=== PATIENT | male | born 1995 | race Caucasian/White ===

== ENCOUNTER 2016-09-25 07:52 | Emergency (ER) | payer BC ==
[~2016-09-25] VITALS: Ht 182.9 cm; Wt 66.6 kg
[~2016-09-25 07:52] MED LIST: CHLO100T8 PO; CLON0.5T3 PO; HYDR-5688 PO; PROP1TAB PO; VENL150T33 PO
[2016-09-25 07:56] VITALS: TEMP 37.1; Ht 182.9 cm; Wt 66.6 kg
[2016-09-25] MEDS ORDERED: MoRPHine SULFATE 4 MG/ML 1 ML CARP\\VIAL IV STA (08:15)
[2016-09-25] MEDS ORDERED: SODIUM CHLORIDE 0.9% 1000ML 1,000 ML IV STA (08:15)
[2016-09-25] MEDS ORDERED: ONDANSETRON INJ 2 MG/ML 2 ML VIAL IV STA (08:15)
[2016-09-25] MEDS ORDERED: KETOROLAC TROMETHAMINE 30 MG/ML VIAL IV STA (08:15)
[2016-09-25 08:46] LABS: BASO % 0.2 %; BASO ABS # 0.02 K/uL (0-0.2); COMPLETE YES; EOS % 2.4 %; HEMATOCRIT 43.6 % (42-52); IG% 0.2 %; LYMPH % 24.1 %; LYMPH ABS # 2.34 K/uL (1.2-3.4); MEAN CELL VOLUME 90.3 fL (80-100); MEAN CORPUSCULAR HEMOGLOBIN 32.9 pg (25-34); MEAN CORPUSCULAR HGB CONC 36.5 g/dl (32-36); MEAN PLATELET VOLUME 9.3 fL (7.4-10.4); MONO % 9.7 %; NEUT % 63.4 %; PLATELET COUNT 262 K/uL (130-400); RED BLOOD COUNT 4.83 M/uL (4.7-6.1)
[2016-09-25 08:55] LABS: URINE APPEARANCE CLEAR (CLEAR); URINE BILIRUBIN NEG (NEG); URINE COLOR YELLOW; URINE NITRITE NEG (NEG); URINE SPECIFIC GRAVITY 1.017 (1.000-1.030); UROBILINOGEN NEG (NEG)
[2016-09-25 09:12] LABS: BUN/CREATININE RATIO 15.7 (10-20); CALCIUM 8.8 mg/dl (8.5-10.1); CREATININE 0.9 mg/dl (0.60-1.40); POTASSIUM 3.5 mmol/L (3.5-5.1)
[2016-09-25 09:12] LABS: MANUAL MICROSCOPIC REQUIRED? NO; REVIEW REQ? NO
[2016-09-25 09:15] LABS: ALB/GLOB RATIO 1.2 (0.9-2)
--- NOTE | 2016-09-25 09:32 | DIAGNOSTIC IMAGING REPORT ---
TESTICULAR ULTRASOUND HISTORY: Right testicular/RLQ/flank pain COMPARISON: None. FINDINGS: Right testis: 5.9 x 3.2 x 2.1 cm. There are no intratesticular masses. Normal color flow. No hydrocele. The epididymis is unremarkable. Left testis: 5.5 x 2.3 x 3.2 cm. There are no intratesticular masses. Normal color flow. No hydrocele. A single punctate microlith. 2 mm cyst within the epididymal head. IMPRESSION: Normal bilateral testes. A 2 mm left epididymal head cyst. Electronically signed by: Deshawn Cyr M.D. 09/25/2016 9:30 AM Dictated Date/Time: 09/25/2016 9:29 AM
--- NOTE | 2016-09-25 09:33 | DIAGNOSTIC IMAGING REPORT ---
ULTRASOUND KIDNEYS AND BLADDER CLINICAL HISTORY: Right flank pain. COMPARISON STUDY: Abdominal CT dated 01/31/2016. TECHNIQUE: Real-time, grayscale, and color flow sonography of the kidneys and bladder is performed. Images are reviewed in the transverse and longitudinal planes. FINDINGS: Kidneys: The kidneys are normal in size and echotexture. The right kidney measures 11.3 x 3.6 x 4.7 cm and the left kidney measures 10.6 x 4.4 x 5.0 cm. There is no hydronephrosis. There is a 3 mm nonobstructing right renal calculus. No shadowing calculi are identified in the left kidney. There is no sonographic evidence of contour deforming renal mass lesion. No perinephric fluid is identified. Bladder: The partially decompressed bladder is normal as visualized. Ureteral jets were not seen. IMPRESSION: 1. The kidneys are normal in size and without hydronephrosis. 2. A nonobstructing right renal calculus is identified. This was also seen by CT on 01/31/2016. 3. The bladder is partially decompressed and grossly unremarkable. Electronically signed by: Terry Neff M.D. 09/25/2016 9:32 AM Dictated Date/Time: 09/25/2016 9:30 AM
[2016-09-25] MEDS ORDERED: VORT1TAB (09:34)
[2016-09-25] MEDS ORDERED: ACET-749 PO (09:56)
[2016-09-25 10:06] VITALS: BP 127/78; PULSE 93; O2SAT 97
--- NOTE | 2016-09-25 16:26 | EMERGENCY ROOM VISIT NOTE ---
History First contact with patient: 08:01 Chief Complaint: GROIN PAIN Stated Complaint: RIGHT GROIN PAIN History of Present Illness The patient is a 21 year old male who presents to the Emergency Room with complaints of right groin and testicular pain. The patient reports that his pain started approximately 2 hours ago. He reports that the pain is intermittent. He has not had any urination since this morning. He does report a prior history of kidney stones, and reports that it feels the same. He has not noticed any blood in his urine. He denies any nausea, vomiting, back pain, flank pain or generalized abdominal pain. The patient reports that the pain is worsened with contact with the right testicle. He has not noticed any testicular swelling or scrotal swelling/redness. The patient essentially active with condoms. He denies any urethral drainage or rectal pain. He rates his discomfort an 8 out of 10. Review of Systems 10 system review was performed and was negative except for pertinent positives and negatives as indicated in history of present illness Past Medical/Surgical History Medical Problems: (1) Anxiety (2) CANNABIS DEPEND-UNSPEC (3) Depressed (4) Kidney stone (5) Urinary problem Surgical Problems: (1) [place] teeth extracted Family History FH: kidney disease FHx: hypertension Heart disease Social History Smoking Status: Current Every Day Smoker Alcohol Use: none Drug Use: marijuana Marital Status: single Housing Status: lives with family Occupation Status: employed Current/Historical Medications Scheduled Clonazepam (Klonopin), 0.5 MG PO TID Scheduled PRN Acetaminophen/Codeine (Tylenol W/Codeine #3), 1-2 TABS PO q4-6h PRN for Pain Miscellaneous Medications Vortioxetine HBr (Trintellix) Allergies Coded Allergies: Trazodone (Verified Allergy, Unknown, RASH, SENSATION OF INCREASED BODY TEMPERATURE,DIAPHORESIS, 09/25/16) Physical Exam Vital Signs Date Time Temp Pulse Resp B/P Pulse Ox O2 Delivery O2 Flow Rate FiO2 09/25/16 10:06 93 18 127/78 97 Room Air 09/25/16 07:56 37.1 113 19 95 Room Air Physical Exam CONSTITUTIONAL: Healthy and well nourished. Alert and oriented X 3 with positive affect. Patient appears in mild discomfort. HEENT: Normocephalic, atraumatic. Pupils equal, round and reactive. NECK: Full active range of motion without discomfort. RESPIRATORY: Clear to auscultation bilaterally with no wheezing, crackles, rhonchi or stridor. CARDIOVASCULAR: Regular rate and rhythm with no murmurs, rubs or gallops. GASTROINTESTINAL: Bowel sounds present in all quadrants. Examination shows no abdominal tenderness to palpation. Negative McBurney's point tenderness. Negative CVA tenderness. No suprapubic tenderness to palpation. GENITOURINARY: The patient has tenderness to palpation of the posterior testicular region. No obvious epididymal swelling, back or arms or palpable masses within the scrotum or right inguinal canal. No urethral drainage. MUSCULOSKELETAL: Full range of motion of all joints without discomfort. INTEGUMENTARY: No rash or other significant dermatologic conditions noted. NEUROLOGIC: No focal neurologic deficits noted. Medical Decision & Procedures ER Provider Diagnostic Interpretation: Testicular ultrasound does not show any evidence for torsion, epididymitis or other acute right testicular etiologies. An incidental 2 mm cyst within the left epididymal head is noted. TESTICULAR ULTRASOUND HISTORY: Right testicular/RLQ/flank pain COMPARISON: None. FINDINGS: Right testis: 5.9 x 3.2 x 2.1 cm. There are no intratesticular masses. Normal color flow. No hydrocele. The epididymis is unremarkable. Left testis: 5.5 x 2.3 x 3.2 cm. There are no intratesticular masses. Normal color flow. No hydrocele. A single punctate microlith. 2 mm cyst within the epididymal head. Retroperitoneal ultrasound does not show any hydronephrosis. A small right renal calculus is noted. Radiologist report is as follows: ULTRASOUND KIDNEYS AND BLADDER CLINICAL HISTORY: Right flank pain. COMPARISON STUDY: Abdominal CT dated 01/31/2016. TECHNIQUE: Real-time, grayscale, and color flow sonography of the kidneys and bladder is performed. Images are reviewed in the transverse and longitudinal planes. FINDINGS: Kidneys: The kidneys are normal in size and echotexture. The right kidney measures 11.3 x 3.6 x 4.7 cm and the left kidney measures 10.6 x 4.4 x 5.0 cm. There is no hydronephrosis. There is a 3 mm nonobstructing right renal calculus. No shadowing calculi are identified in the left kidney. There is no sonographic evidence of contour deforming renal mass lesion. No perinephric fluid is identified. Bladder: The partially decompressed bladder is normal as visualized. Ureteral jets were not seen. IMPRESSION: 1. The kidneys are normal in size and without hydronephrosis. 2. A nonobstructing right renal calculus is identified. This was also seen by CT on 01/31/2016. 3. The bladder is partially decompressed and grossly unremarkable. Laboratory Results 09/25/16 08:35 Red Blood Count 4.83, Mean Corpuscular Volume 90.3, Mean Corpuscular Hemoglobin 32.9, Mean Corpuscular Hemoglobin Concent 36.5, Mean Platelet Volume 9.3, Neutrophils (%) (Auto) 63.4, Lymphocytes (%) (Auto) 24.1, Monocytes (%) (Auto) 9.7, Eosinophils (%) (Auto) 2.4, Basophils (%) (Auto) 0.2, Neutrophils # (Auto) 6.15, Lymphocytes # (Auto) 2.34, Monocytes # (Auto) 0.94, Eosinophils # (Auto) 0.23, Basophils # (Auto) 0.02 09/25/16 08:35 Test 09/25/16 08:25 09/25/16 08:35 Urine Color YELLOW Urine Appearance CLEAR (CLEAR) Urine pH 6.0 (4.5-7.5) Urine Specific [place] 1.017 (1.000-1.030) Urine Protein NEG (NEG) Urine Glucose (UA) NEG (NEG) Urine Ketones TRACE (NEG) Urine Occult Blood NEG (NEG) Urine Nitrite NEG (NEG) Urine Bilirubin NEG (NEG) Urine Urobilinogen NEG (NEG) Urine Leukocyte Esterase NEG (NEG) White Blood Count 9.70 K/uL (4.8-10.8) Red Blood Count 4.83 M/uL (4.7-6.1) Hemoglobin 15.9 g/dL (14.0-18.0) Hematocrit 43.6 % (42-52) Mean Corpuscular Volume 90.3 fL (80-100) Mean Corpuscular Hemoglobin 32.9 pg (25-34) Mean Corpuscular Hemoglobin Concent 36.5 g/dl (32-36) Platelet Count 262 K/uL (130-400) Mean Platelet Volume 9.3 fL (7.4-10.4) Neutrophils (%) (Auto) 63.4 % Lymphocytes (%) (Auto) 24.1 % Monocytes (%) (Auto) 9.7 % Eosinophils (%) (Auto) 2.4 % Basophils (%) (Auto) 0.2 % Neutrophils # (Auto) 6.15 K/uL (1.4-6.5) Lymphocytes # (Auto) 2.34 K/uL (1.2-3.4) Monocytes # (Auto) 0.94 K/uL (0.11-0.59) Eosinophils # (Auto) 0.23 K/uL (0-0.5) Basophils # (Auto) 0.02 K/uL (0-0.2) RDW Standard Deviation 39.5 fL (36.4-46.3) RDW Coefficient of Variation 12.1 % (11.5-14.5) Immature Granulocyte % (Auto) 0.2 % Immature Granulocyte # (Auto) 0.02 K/uL (0.00-0.02) Anion Gap 10.0 mmol/L (3-11) Est Creatinine Clear Calc Drug Dose 122.3 ml/min Estimated GFR () 141.0 Estimated GFR (Non- 121.7 BUN/Creatinine Ratio 15.7 (10-20) Calcium Level 8.8 mg/dl (8.5-10.1) Total Bilirubin 0.5 mg/dl (0.2-1) Aspartate Amino Transf (AST/SGOT) 12 U/L (15-37) Alanine Aminotransferase (ALT/SGPT) 15 U/L (12-78) Alkaline Phosphatase 143 U/L (45-117) Total Protein 6.9 gm/dl (6.4-8.2) Albumin 3.8 gm/dl (3.4-5.0) Globulin 3.1 gm/dl (2.5-4.0) Albumin/Globulin Ratio 1.2 (0.9-2) Lipase 141 U/L (73-393) Medications Administered Medications (Trade) Dose Ordered Sig/Brendan Route Start Time Stop Time Status Last Admin Dose Admin Sodium Chloride (Nss 1000ml) 1,000 ml @ 999 mls/hr Q1H1M STAT IV 09/25/16 08:15 09/25/16 09:15 DC 09/25/16 08:40 999 MLS/HR Ketorolac Tromethamine (Toradol Inj) 30 mg NOW STAT IV 09/25/16 08:15 09/25/16 08:18 DC 09/25/16 08:40 30 MG Morphine Sulfate (MoRPHine SULFATE INJ) 4 mg NOW STAT IV 09/25/16 08:15 09/25/16 08:18 DC 09/25/16 08:39 4 MG Ondansetron HCl (Zofran Inj) 4 mg NOW STAT IV 09/25/16 08:15 09/25/16 08:18 DC 09/25/16 08:38 4 MG Procedure 1. IV hydration: The patient received a liter normal saline bolus 2. IV medications: Toradol 30 mg, morphine 4 mg and Zofran 4 mg IVP ED Course Patient history and physical exam were performed. Nurse's notes were reviewed. Vital signs were reviewed and were normal. IV access was established, and labs were drawn. The patient was hydrated with normal saline, and received IV medications as discussed in the previous Procedure section. Labs were reviewed to show no acute abnormalities. Urinalysis shows no evidence for infection or hematuria. Testicular ultrasound does not show any obvious right-sided abnormalities. At this point, the patient was provided contact information for Dr. Anderson, urologist on-call. The patient was instructed to remain well-hydrated. He was provided a prescription for Tylenol with Codeine as needed for pain. He was also encouraged to intermittently apply ice and wear an athletic support for additional relief. He was instructed to return for any progressively worsening pain, vomiting or fever. The patient was happy with plan of care, voiced understanding of all discharge instructions, and rated his pain a 2 out of 10. Medical Decision Patient presents to the emergency department with complaint of right testicular pain. His clinical exam does not show any abdominal tenderness to palpation, therefore I do not suspect appendicitis, peritonitis or diverticulitis. He has a negative CVA tenderness, therefore pyelonephritis is not suspected. Urinalysis shows no evidence for infection or hematuria, therefore I do not suspect UTI or ureteral calculus. Testicular ultrasound does not show any evidence for torsion, epididymitis or right-sided testicular etiologies. Retroperitoneal ultrasound does not show any evidence for obstructive uropathy. A nonobstructing right renal calculus is noted. Impression Primary Impression: Right testicular pain Departure Information Prescriptions Acetaminophen/Codeine (Tylenol W/Codeine #3) 300 Mg/30 Mg Tab 1-2 TABS PO q4-6h Y for Pain, #30 TAB For Initial Treatment Prov: Alexi Shen PA 09/25/16 Referrals Jah Li D[facility] (PCP) Patient Instructions [facility]
== END 2016-09-25 10:36 | disposition home or self-care (01) ==
LOC: C.EDB 07:53 → C.EDA 10:36
DX: N50.811 Right testicular pain (principal); F41.9 Anxiety disorder, unspecified; F32.9 Major depressive disorder, single episode, unspecified; F17.200 Nicotine dependence, unspecified, uncomplicated; Z87.442 Personal history of urinary calculi; Z87.440 Personal history of urinary (tract) infections; Z79.899 Other long term (current) drug therapy; Z88.8 Allergy status to other drugs, medicaments and biological substances; Z82.49 Family history of ischemic heart disease and other diseases of the circulatory system; Z84.1 Family history of disorders of kidney and ureter

== ENCOUNTER → 2016-11-13 | Outpatient (CLI) | payer BC ==
[~2016-11-13] MED LIST changes: +ACET-749 PO; -CHLO100T8 PO; -HYDR-5688 PO; +IBUP-1428 PO; -PROP1TAB PO; -VENL150T33 PO; +VORT1TAB
[2016-11-13 12:59] LABS: BENZODIAZEPINE, URINE NEG (NEG); COCAINE,URINE POS (NEG); PHENCYCLIDINE, URINE NEG (NEG)
[2016-11-17 05:47] LABS: COCAINE, URINE 439 NG/ML (CUTOFF=100)
== END | disposition home or self-care (01) ==
LOC: C.LAB 09:56
PROVIDERS: ATTEND Physician Assistant
DX: F33.0 Major depressive disorder, recurrent, mild (principal)

== ENCOUNTER 2017-04-19 12:07 | Emergency (ER) | payer BC ==
[~2017-04-19] VITALS: Ht 182.9 cm; Wt 67.8 kg
[~2017-04-19 12:07] MED LIST changes: -ACET-749 PO; -IBUP-1428 PO
[2017-04-19 12:19] VITALS: TEMP 36.7; Ht 182.9 cm; Wt 67.8 kg
--- NOTE | 2017-04-19 13:03 | DIAGNOSTIC IMAGING REPORT ---
LEFT HAND MIN 3 VIEWS ROUTINE CLINICAL HISTORY: Injury s/p fall trauma. Pain. COMPARISON: None. DISCUSSION: The bones and joint spaces appear intact. There is no evidence of fracture, dislocation or bony disease. There is no evidence for soft tissue swelling. IMPRESSION: Negative study. The above report was generated using voice recognition software. It may contain grammatical, syntax or spelling errors. Electronically signed by: Ricardo Roberto M.D. 04/19/2017 1:01 PM Dictated Date/Time: 04/19/2017 1:01 PM
[2017-04-19] MEDS ORDERED: IBUP-1428 PO (13:14)
[2017-04-19 13:24] VITALS: BP 130/70; PULSE 84; O2SAT 97
--- NOTE | 2017-04-19 22:35 | EMERGENCY ROOM VISIT NOTE ---
ED Visit Note First contact with patient: 12:39 Chief Complaint: I hurt my left hand. History of Present Illness: Mr. Sharma is a 22-year-old white male who ambulates into the ED complaining of left hand pain in the area of the thenar eminence and the first metacarpal. Patient reports he was at a bar last night. He does report he was drinking alcohol. He reports slipping on the floor on his extended left hand. He reports at the time of the fall he was not lightheaded or dizzy. He did not strike his head or have a loss of consciousness and since the fall he had no signs of head injury. Currently he is complaining of a moderate amount of pain in the thenar eminence and the proximal aspect of the first metacarpal of the left hand. He describes his pain as a sharp and throbbing sensation. He rates his discomfort 7/10. He reports there is minimal radiation to the distal radius. His pain worsens with palpation of the first metacarpal and the thenar eminence but none over the distal radius or any anatomical snuffbox. He has not taken any medications for pain prior to arrival at the hospital. He denies any associated symptoms including elbow pain, forearm pain, other hand pain, finger weakness/numbness/ tingling. Additionally he denies any previous significant injuries or surgeries to the left hand or wrist. Review of Systems: As noted above in history of present illness. 5 body systems were reviewed and found to be negative as noted above. Past Medical History: Kidney stones, unspecified nasal surgery, status post wisdom teeth extraction. Current Medications: Patient denies. Allergies to Medications: Trazodone. Social History: Patient is currently employed; he feels safe in his home environment; he admits to tobacco and alcohol use. Physical Examination: Vital Signs: Date Time Temp Pulse Resp B/P (MAP) Pulse Ox O2 Delivery O2 Flow Rate FiO2 04/19/17 13:24 84 18 130/70 97 04/19/17 12:19 36.7 79 16 123/75 99 Room Air GENERAL: 22-year-old male in mild distress due to pain, nontoxic-appearing, afebrile and hemodynamically stable. NEUROLOGICAL: Awake, alert and oriented to person, place and time. Answering questions appropriately and following commands. SKIN: Warm, dry and pink. No soft tissue eruptions or trauma noted. LEFT UPPER EXTREMITY: No gross bony deformity. No tenderness in the elbow, forearm or distal radius/ulna. Moderate tenderness in the thenar eminence and over the first metacarpal without bony deformity. There is mild swelling in this area and early bruising. Decreased range of motion in extension of the first MCP joint. No tenderness throughout the rest of the thumb including the interphalangeal joint or phalanx. Throughout the thumb the skin was warm and pink and capillary refill is brisk. He is able to distinguish light sensations through all dermatomes of the thumb. No tenderness, bony deformity or bruising of the other fingers. ED Course: Patient is assessed as noted above. Patient's medication list was reviewed. Patient was offered pain medication and refused but that except denies. Left Hand X-Rays: Were read by myself and the radiologist showing no acute fractures or dislocations. Patient's left wrist/thumb was placed in a thumb spica splint. Patient was educated about today's findings and instructed on his treatment plan ; he verbalizes understanding and agreement with this plan. Clinical Impression: Left thumb pain. Probable early contusion. Decision-Making: Initially my differential diagnosis I considered contusion, wrist fracture, metacarpal fracture, thumb sprain and other causes. Disposition: Patient discharged home in stable condition; prior to departure he was reassessed and subjectively reported he was feeling better and rated his discomfort 5/10. Plan: Comfort measures were discussed with the patient including rest, ice, splint use ; patient requested a prescription for 800 mg ibuprofen tablets and he was given one for every 6 hours as needed for pain and he was encouraged to take with food and stop for stomach pain or indigestion. Patient was encouraged to follow-up with health science specialist if no better in 7 -10 days. Patient was encouraged return ED for worsening pain, uncontrolled swelling, thumb weakness/numbness/tingling or any new/concerning symptoms.
== END 2017-04-19 13:26 | disposition home or self-care (01) ==
LOC: C.EDB 12:08 → C.EDD 13:26
DX: M79.642 Pain in left hand (principal); F17.200 Nicotine dependence, unspecified, uncomplicated; Z87.442 Personal history of urinary calculi; Z98.890 Other specified postprocedural states

== ENCOUNTER → 2017-09-14 | Outpatient (CLI) | payer BC ==
[~2017-09-14] MED LIST changes: -CLON0.5T3 PO; +IBUP-1428 PO; -VORT1TAB
== END | disposition home or self-care (01) ==
LOC: C.LABSPEC 11:11
PROVIDERS: ATTEND Nurse Practitioner Adult Health
DX: L08.9 Local infection of the skin and subcutaneous tissue, unspecified (principal)